=== PATIENT | female | born 1970 ===

== ENCOUNTER 2021-02-23 17:47 | Inpatient (IN) | payer OTHER, SELFPAY ==
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
[2021-02-23 20:47] VITALS: BP 108/75; PULSE 89; TEMP 36.6; O2SAT 96
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
[2021-02-24 11:28] VITALS: BP 113/73; PULSE 80; RESP 16; TEMP 37.5; O2SAT 98
[2021-02-24 20:16] VITALS: BP 117/80; PULSE 93; RESP 16; TEMP 36.9; O2SAT 97
[2021-02-24] MEDS: risperiDONE 1 MG TABLET PO (20:32)
[2021-02-25 07:40] LABS: Estimated Average Glucose 111 mg/dL; Hemoglobin A1c % 5.5 %
[2021-02-25 07:44] LABS: Cholesterol 173 mg/dL; HDL Cholesterol 63 mg/dL; LDL Cholesterol Calculated 95 mg/dl; Triglycerides 76 mg/dL
[2021-02-25 08:04] LABS: Thyroid Stimulating Hormone 3.51 uIU/mL (0.32-4.0)
[2021-02-25 08:45] LABS: Folate 13.2 ng/mL (> or = 4.0); Vitamin B12 464 pg/mL (200-900)
[2021-02-25] MEDS: risperiDONE 1 MG TABLET PO ×2 (09:50→22:48)
--- NOTE | 2021-02-25 10:02 | PC.NURSE ---
Pt reports that she gets her risperdal consta injection at [facility] at the [facility]. Pt reports she last had it 2 esdays ago. Message left on the nurse line at [phone] to verify.
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
[2021-02-25 10:31] VITALS: BP 117/72; PULSE 85; RESP 18; TEMP 36.8; O2SAT 97
[2021-02-25] MEDS: Levothyroxine Sodium 100 MCG TABLET PO (12:08)
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
[2021-02-25 22:42] VITALS: BP 113/74; PULSE 88; TEMP 36.8; O2SAT 95
[2021-02-26] MEDS: Levothyroxine Sodium 100 MCG TABLET PO (05:56)
[2021-02-26] MEDS: risperiDONE 1 MG TABLET PO (08:42)
[2021-02-26 08:45] VITALS: BP 124/87; PULSE 92; RESP 16; TEMP 36.9; O2SAT 98
--- NOTE | 2021-02-26 13:48 | P.PNPSI_ITS ---
Subjective Subjective Date of Service: 02/26/21 Reason For Visit: psychiatric emergency Interim History: pt reports her mood is so-so. excessive eye contact, reluctance to change medication. on MD's prompt, she does acknowledge believing the devil is coming after her. after repeated strong encouragement to increase her HS risperidone, she agrees. MD also informs her she will need a higher dose of the consta shot. per staff, isolative, paranoid. med-compliant. evasive. some ideation that the devil is coming after her. up at 0430 tiday. Mental Status Exam Mental Status Exam Narrative: Appearance: casually groomed, fair hygiene in NAD Behavior:cooperative, excessive eye contact psychomotor:no agitation or retardation noted Speech:soft spoken, clear, some delayed response rate, spontaneous Thought process:linear in brief and focused interview Thought content:paranoid delusions the devil is after her Mood: so-so Affect: constricted, worried SI:none expressed HI:none expressed VH/AH:none expressed Delusions:paranoid delusions Insight/judgment:poor x 2. Diagnostics Vital Signs (24Hr): Vital Signs - 24 hr 02/25/21 22:42 02/26/21 08:45 Temperature 98.2 F 98.4 F Pulse Rate 88 92 Respiratory Rate 16 Blood Pressure 113/74 124/87 Pulse Oximetry 95 98 Labs Labs: Laboratory Results - last 48 hr 02/25/21 02/25/21 02/25/21 07:09 07:09 07:09 Estimat Average Glucose 111 Hemoglobin A1c % 5.5 Triglycerides 76 Cholesterol 173 LDL Cholesterol, Calc 95 HDL Cholesterol 63 Vitamin B12 464 Folate 13.2 TSH 3.51 Medications Medications Current Medications Acetaminophen (Acetaminophen 325 Mg Tablet) 650 mg PO Q6H PRN PRN Reason: Headache/Pain Mild Scale (1-3) Al Hydroxide/Mg Hydroxide (Magnesium Hydrox/Alum Hydrox 30 Ml Oral.Susp) 30 ml PO Q6H PRN PRN Reason: Heartburn/Nausea Hydroxyzine HCl (Hydroxyzine Hcl 25 Mg Tablet) 25 mg PO BEDTIME PRN PRN Reason: Anxiety Levothyroxine Sodium (Levothyroxine Sodium 100 Mcg Tablet) 100 mcg PO DAILY@0600 [facility] Last Admin: 02/26/21 05:56 Dose: 100 mcg Documented by: Lorazepam (Lorazepam 1 Mg Tablet) 1 mg PO Q4H PRN PRN Reason: Anxiety Magnesium Hydroxide (Milk Of Magnesia 30 Ml Oral.Susp) 30 ml PO DAILY PRN PRN Reason: Constipation Risperidone (Risperidone 2 Mg Tablet) 2 mg PO Q4H PRN PRN Reason: agitation Risperidone (Risperidone 1 Mg Tablet) 1 mg PO DAILY [facility] Risperidone (Risperidone 2 Mg Tablet) 2 mg PO BEDTIME SHERI Trazodone HCl (Trazodone Hcl 50 Mg Tablet) 50 mg PO BEDTIME PRN PRN Reason: Insomnia Allergies Allergies Allergy/AdvReac Type Severity Reaction Status Date / Time aripiprazole [From [facility]] AdvReac Intermediate Agitated Verified 02/23/21 18:37 Assessment & Plan Assessment & Plan (1) Hypothyroidism: Status: Acute Code(s): E03.9 - Hypothyroidism, unspecified (2) Schizophrenia, paranoid type: Status: Acute Code(s): F20.0 - Paranoid schizophrenia Assessment and Plan: 50-year-old female with hypothyroidism, schizophrenia presently being treated for decompensation of schizophrenia. No acute medical issues at this point 1. For hypothyroidism continue levothyroxine 2. Schizophrenia-- scheduled risperidone in addition to the consta which she believes is due either sunday or sunday. PO risperidone dosing increased from 1 BID to 1/2 as of 02/26. will need a higher dose of consta next go-round. 3. Question of being diagnosed with brain tumor veracity not no ascertain, I suggest we get additional information from a primary care physician's office once office is open, had no clinical signs or symptoms to suggest a brain tumor. I spent minutes with the patient and/or on the patient floor today, greater than?50% of which was spent counseling/coordinating care. Reason for contiued inpatient stay Substantial Risk for: inability to function and rapid decompensation
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
[2021-02-26 18:00] VITALS: BP 125/82; PULSE 85; RESP 16; TEMP 36.7; O2SAT 97
[2021-02-26] MEDS: risperiDONE 2 MG TABLET PO (20:06)
[2021-02-27] MEDS: Levothyroxine Sodium 100 MCG TABLET PO (06:21)
[2021-02-27 08:00] VITALS: BP 120/79; PULSE 88; RESP 14; TEMP 37.1; O2SAT 97
[2021-02-27] MEDS: risperiDONE 1 MG TABLET PO (08:04)
--- NOTE | 2021-02-27 13:26 | HO.PSYCHPN ---
Subjective Subjective Date of Service: 02/27/21 Reason For Visit: psychiatric emergency Interim History: pt reports no substantial change from yesterday. agreeable to trial of cogentin for her restlessness, although she does not believe it is a side effect of risperidone. informs her that if the medication doesn't do anything then we will just stop it and no harm done. no other complaints or requests. per staff, pt has been hearing the TV in the common area from her room, which is all the way down the lyn (not possible and indicates AH). the TV is informing her it's time for her to be in court, it's time for her judgment. she is anxious, up at 0230 pacing. ate breakfast this morning. Mental Status Exam Mental Status Exam Narrative: Appearance: casually groomed, fair hygiene in NAD Behavior:cooperative, excessive eye contact psychomotor:no agitation or retardation noted Speech:soft spoken, clear, some delayed response rate, spontaneous Thought process:linear in brief and focused interview Thought content:paranoid delusions Mood: anxious Affect: constricted, worried SI:none expressed HI:none expressed VH/AH:+AH Delusions:paranoid delusions Insight/judgment:poor x 2. Diagnostics Vital Signs (24Hr): Vital Signs - 24 hr 02/26/21 18:00 02/27/21 08:00 Temperature 98.0 F 98.7 F Pulse Rate 85 88 Respiratory Rate 16 14 Blood Pressure 125/82 120/79 Pulse Oximetry 97 97 Medications Medications Current Medications Acetaminophen (Acetaminophen 325 Mg Tablet) 650 mg PO Q6H PRN PRN Reason: Headache/Pain Mild Scale (1-3) Al Hydroxide/Mg Hydroxide (Magnesium Hydrox/Alum Hydrox 30 Ml Oral.Susp) 30 ml PO Q6H PRN PRN Reason: Heartburn/Nausea Benztropine Mesylate (Benztropine Mesylate 0.5 Mg Tablet) 0.5 mg PO BID [facility] Hydroxyzine HCl (Hydroxyzine Hcl 25 Mg Tablet) 25 mg PO BEDTIME PRN PRN Reason: Anxiety Levothyroxine Sodium (Levothyroxine Sodium 100 Mcg Tablet) 100 mcg PO DAILY@0600 [facility] Last Admin: 02/27/21 06:21 Dose: 100 mcg Documented by: Lorazepam (Lorazepam 1 Mg Tablet) 1 mg PO Q4H PRN PRN Reason: Anxiety Magnesium Hydroxide (Milk Of Magnesia 30 Ml Oral.Susp) 30 ml PO DAILY PRN PRN Reason: Constipation Risperidone (Risperidone 2 Mg Tablet) 2 mg PO Q4H PRN PRN Reason: agitation Risperidone (Risperidone 1 Mg Tablet) 1 mg PO DAILY [facility] Last Admin: 02/27/21 08:04 Dose: 1 mg Documented by: Risperidone (Risperidone 2 Mg Tablet) 2 mg PO BEDTIME [facility] Last Admin: 02/26/21 20:06 Dose: 2 mg Documented by: Trazodone HCl (Trazodone Hcl 50 Mg Tablet) 50 mg PO BEDTIME PRN PRN Reason: Insomnia Allergies Allergies Allergy/AdvReac Type Severity Reaction Status Date / Time [facility] [[facility] AdvReac Intermediate Agitated Verified 02/23/21 18:37 Assessment & Plan Assessment & Plan (1) Hypothyroidism: Status: Acute Code(s): E03.9 - Hypothyroidism, unspecified (2) Schizophrenia, paranoid type: Status: Acute Code(s): F20.0 - Paranoid schizophrenia Assessment and Plan: 50-year-old female with hypothyroidism, schizophrenia presently being treated for decompensation of schizophrenia. No acute medical issues at this point 1. For hypothyroidism continue levothyroxine 2. Schizophrenia-- scheduled risperidone in addition to the consta which she believes is due either sunday or sunday. PO risperidone dosing increased from 1 BID to 1mg daily and 2 mg QHS as of 02/26. will need a higher dose of consta next go-round. 3. Question of being diagnosed with brain tumor veracity not no ascertain, I suggest we get additional information from a primary care physician's office once office is open, had no clinical signs or symptoms to suggest a brain tumor. I spent minutes with the patient and/or on the patient floor today, greater than?50% of which was spent counseling/coordinating care. Reason for contiued inpatient stay Substantial Risk for: inability to function and rapid decompensation
[2021-02-27] MEDS: Benztropine Mesylate 0.5 MG TABLET PO ×2 (13:29→22:11)
[2021-02-27 18:00] VITALS: BP 105/58; PULSE 94; RESP 16; TEMP 36.4; O2SAT 96
[2021-02-27] MEDS: risperiDONE 2 MG TABLET PO (22:11)
[2021-02-28] MEDS: Levothyroxine Sodium 100 MCG TABLET PO (08:58)
[2021-02-28] MEDS: Benztropine Mesylate 0.5 MG TABLET PO (10:01)
[2021-02-28] MEDS: risperiDONE 1 MG TABLET PO (10:01)
--- NOTE | 2021-02-28 13:26 | HO.PSYCHPN ---
Subjective Subjective Date of Service: 02/28/21 Reason For Visit: psychiatric emergency Interim History: pt found ambulating down the lyn, amenable to a chat. presentation does not appear to have changed, pt reports ongoing paranoid delusions. discussed her having gotten her consta 02/21 and thus her next scheduled dose being 12/6. states she is not feeling overly restless but there has been no change in the restlessness she is experiencing. agrees to increase cogentin to 1 BID and if no improvement on that dose will DC it. no other complaints or requests. per staff, slept 6-8 hours overnight. med-compliant. anx/dep 01/09. Mental Status Exam Mental Status Exam Narrative: Appearance: casually groomed, fair hygiene in NAD Behavior:cooperative, excessive eye contact psychomotor:no agitation or retardation noted Speech:soft spoken, clear, spontaneous Thought process:linear in brief and focused interview Thought content:paranoid delusions Mood: anxious Affect: full range SI:none expressed HI:none expressed VH/AH:+AH Delusions:paranoid delusions Insight/judgment:poor x 2. Diagnostics Vital Signs (24Hr): Vital Signs - 24 hr 02/27/21 18:00 Temperature 97.6 F Pulse Rate 94 Respiratory Rate 16 Blood Pressure 105/58 L Pulse Oximetry 96 Medications Medications Current Medications Acetaminophen (Acetaminophen 325 Mg Tablet) 650 mg PO Q6H PRN PRN Reason: Headache/Pain Mild Scale (1-3) Al Hydroxide/Mg Hydroxide (Magnesium Hydrox/Alum Hydrox 30 Ml Oral.Susp) 30 ml PO Q6H PRN PRN Reason: Heartburn/Nausea Benztropine Mesylate (Benztropine Mesylate 1 Mg Tablet) 1 mg PO BID [facility] Hydroxyzine HCl (Hydroxyzine Hcl 25 Mg Tablet) 25 mg PO BEDTIME PRN PRN Reason: Anxiety Levothyroxine Sodium (Levothyroxine Sodium 100 Mcg Tablet) 100 mcg PO DAILY@0600 [facility] Last Admin: 02/28/21 08:58 Dose: 100 mcg Documented by: Lorazepam (Lorazepam 1 Mg Tablet) 1 mg PO Q4H PRN PRN Reason: Anxiety Magnesium Hydroxide (Milk Of Magnesia 30 Ml Oral.Susp) 30 ml PO DAILY PRN PRN Reason: Constipation Risperidone (Risperidone 2 Mg Tablet) 2 mg PO Q4H PRN PRN Reason: agitation Risperidone (Risperidone 1 Mg Tablet) 1 mg PO DAILY [facility] Last Admin: 02/28/21 10:01 Dose: 1 mg Documented by: Risperidone (Risperidone 2 Mg Tablet) 2 mg PO BEDTIME [facility] Last Admin: 02/27/21 22:11 Dose: 2 mg Documented by: Trazodone HCl (Trazodone Hcl 50 Mg Tablet) 50 mg PO BEDTIME PRN PRN Reason: Insomnia Allergies Allergies Allergy/AdvReac Type Severity Reaction Status Date / Time aripiprazole [From [facility]] AdvReac Intermediate Agitated Verified 02/23/21 18:37 Assessment & Plan Assessment & Plan (1) Hypothyroidism: Status: Acute Code(s): E03.9 - Hypothyroidism, unspecified (2) Schizophrenia, paranoid type: Status: Acute Code(s): F20.0 - Paranoid schizophrenia Assessment and Plan: 50-year-old female with hypothyroidism, schizophrenia presently being treated for decompensation of schizophrenia. No acute medical issues at this point 1. For hypothyroidism continue levothyroxine 2. Schizophrenia-- scheduled risperidone in addition to the consta which she believes is due either sunday or sunday. PO risperidone dosing increased from 1 BID to 1mg daily and 2 mg QHS as of 02/26. will need a higher dose of consta next go-round. 3. Question of being diagnosed with brain tumor veracity not no ascertain, I suggest we get additional information from a primary care physician's office once office is open, had no clinical signs or symptoms to suggest a brain tumor. 4. ? akathisia - cogentin trial ongoing. I spent minutes with the patient and/or on the patient floor today, greater than?50% of which was spent counseling/coordinating care. Reason for contiued inpatient stay Substantial Risk for: inability to function and rapid decompensation
[2021-02-28 18:00] VITALS: BP 120/68; PULSE 96; RESP 17; TEMP 36.9; O2SAT 98
[2021-02-28] MEDS: risperiDONE 2 MG TABLET PO (21:14)
[2021-02-28] MEDS: Benztropine Mesylate 1 MG TABLET PO (21:14)
[2021-03-01] MEDS: Levothyroxine Sodium 100 MCG TABLET PO (06:47)
[2021-03-01 08:41] VITALS: PULSE 88; TEMP 36.1; O2SAT 97
[2021-03-01] MEDS: risperiDONE 1 MG TABLET PO (08:46)
[2021-03-01] MEDS: Benztropine Mesylate 1 MG TABLET PO (08:46)
--- NOTE | 2021-03-01 14:15 | HO.PSYCHPN ---
Subjective Subjective Date of Service: 03/01/21 Reason For Visit: psychiatric emergency Interim History: pt reports her anxiety is worse than previously and her depression is the same. she does not feel any change in her level of restlessness and agrees to DC the cogentin. she states, a lot of the accusations are about me. on being asked to explain, she elaborates, the TV seems to be talking about me. she denies that this could be a hallucination. she states the criticism is regarding mistakes she believes she made in her behavior toward her mother, such as maybe she should have kept the door open, but instead she shut it. she reluctantly agrees to increase her HS risperidone to 3 mg from 2 mg. per staff, briefly visible in the milieu. attended groups. quiet. withdrawn. med-compliant. slept 8 hours. Mental Status Exam Mental Status Exam Narrative: Appearance: casually groomed, fair hygiene in NAD Behavior:cooperative, excessive eye contact psychomotor:no agitation or retardation noted Speech:soft spoken, clear, spontaneous Thought process:linear in brief and focused interview Thought content:paranoid delusions Mood: anxious Affect: full range SI:none expressed HI:none expressed VH/AH:+AH Delusions:paranoid delusions Insight/judgment:poor x 2. Diagnostics Vital Signs (24Hr): Vital Signs - 24 hr 02/28/21 18:00 03/01/21 08:41 Temperature 98.5 F 97 F Pulse Rate 96 88 Respiratory Rate 17 Blood Pressure 120/68 Pulse Oximetry 98 97 Medications Medications Current Medications Acetaminophen (Acetaminophen 325 Mg Tablet) 650 mg PO Q6H PRN PRN Reason: Headache/Pain Mild Scale (1-3) Al Hydroxide/Mg Hydroxide (Magnesium Hydrox/Alum Hydrox 30 Ml Oral.Susp) 30 ml PO Q6H PRN PRN Reason: Heartburn/Nausea Hydroxyzine HCl (Hydroxyzine Hcl 25 Mg Tablet) 25 mg PO BEDTIME PRN PRN Reason: Anxiety Levothyroxine Sodium (Levothyroxine Sodium 100 Mcg Tablet) 100 mcg PO DAILY@0600 [facility] Last Admin: 03/01/21 06:47 Dose: 100 mcg Documented by: Magnesium Hydroxide (Milk Of Magnesia 30 Ml Oral.Susp) 30 ml PO DAILY PRN PRN Reason: Constipation Risperidone (Risperidone 2 Mg Tablet) 2 mg PO Q4H PRN PRN Reason: agitation Risperidone (Risperidone 1 Mg Tablet) 1 mg PO DAILY [facility] Last Admin: 03/01/21 08:46 Dose: 1 mg Documented by: Risperidone (Risperidone 3 Mg Tablet) 3 mg PO BEDTIME [facility] Trazodone HCl (Trazodone Hcl 50 Mg Tablet) 50 mg PO BEDTIME PRN PRN Reason: Insomnia Allergies Allergies Allergy/AdvReac Type Severity Reaction Status Date / Time [facility] AdvReac Intermediate Agitated Verified 02/23/21 18:37 Assessment & Plan Assessment & Plan (1) Hypothyroidism: Status: Acute Code(s): E03.9 - Hypothyroidism, unspecified (2) Schizophrenia, paranoid type: Status: Acute Code(s): F20.0 - Paranoid schizophrenia Assessment and Plan: 50-year-old female with hypothyroidism, schizophrenia presently being treated for decompensation of schizophrenia. No acute medical issues at this point 1. For hypothyroidism continue levothyroxine 2. Schizophrenia-- scheduled risperidone in addition to the consta which is due 03/07. PO risperidone dosing increased from 1 BID to 1mg daily and 2 mg QHS as of 02/26. will need a higher dose of consta next go-round. HS dosing increased from 2 mg to 3 mg as of 03/01. 3. Question of being diagnosed with brain tumor veracity not no ascertain, I suggest we get additional information from a primary care physician's office once office is open, had no clinical signs or symptoms to suggest a brain tumor. 4. ? akathisia - cogentin trial did not modify anxiety. it was stopped after a day at 1 BID. 5. dispo - pending inpt stabilization. I spent minutes with the patient and/or on the patient floor today, greater than?50% of which was spent counseling/coordinating care. Reason for contiued inpatient stay Substantial Risk for: inability to function and rapid decompensation
[2021-03-01 21:57] VITALS: BP 117/73; PULSE 77; TEMP 36.7; O2SAT 98
[2021-03-01] MEDS: risperiDONE 3 MG TABLET PO (22:01)
[2021-03-02] MEDS: Levothyroxine Sodium 100 MCG TABLET PO (06:54)
[2021-03-02 08:26] VITALS: BP 111/76; PULSE 97; RESP 16; TEMP 36.9; O2SAT 97
[2021-03-02] MEDS: risperiDONE 1 MG TABLET PO (08:35)
--- NOTE | 2021-03-02 14:50 | P.PNPSI_ITS ---
Subjective Subjective Date of Service: 03/02/21 Reason For Visit: psychiatric emergency Interim History: pt appears as per usual. states she slept longer on the higher dose of risperidone last night, denies any side effects. broaches that she was stable for a very long time and suddenly she is not. she states that she was under a lot of stress before she came in. 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 per staff, isolative, pleasant, suspicious of peers. eating well, attending groups. took HS meds but was resistant to taking them. Mental Status Exam Mental Status Exam Narrative: Appearance: casually groomed, fair hygiene in NAD Behavior:cooperative, excessive eye contact psychomotor:no agitation or retardation noted Speech:soft spoken, clear, spontaneous Thought process:linear in brief and focused interview Thought content:paranoid delusions Mood: anxious Affect: full range SI:none expressed HI:none expressed VH/AH:+AH Delusions:paranoid delusions Insight/judgment:poor x 2. Diagnostics Vital Signs (24Hr): Vital Signs - 24 hr 03/01/21 21:57 03/02/21 08:26 Temperature 98.0 F 98.5 F Pulse Rate 77 97 Respiratory Rate 16 Blood Pressure 117/73 111/76 Pulse Oximetry 98 97 Medications Medications Current Medications Acetaminophen (Acetaminophen 325 Mg Tablet) 650 mg PO Q6H PRN PRN Reason: Headache/Pain Mild Scale (1-3) Al Hydroxide/Mg Hydroxide (Magnesium Hydrox/Alum Hydrox 30 Ml Oral.Susp) 30 ml PO Q6H PRN PRN Reason: Heartburn/Nausea Hydroxyzine HCl (Hydroxyzine Hcl 25 Mg Tablet) 25 mg PO BEDTIME PRN PRN Reason: Anxiety Levothyroxine Sodium (Levothyroxine Sodium 100 Mcg Tablet) 100 mcg PO DAILY@0600 [facility] Last Admin: 03/02/21 06:54 Dose: 100 mcg Documented by: Magnesium Hydroxide (Milk Of Magnesia 30 Ml Oral.Susp) 30 ml PO DAILY PRN PRN Reason: Constipation Risperidone (Risperidone 2 Mg Tablet) 2 mg PO Q4H PRN PRN Reason: agitation Risperidone (Risperidone 1 Mg Tablet) 1 mg PO DAILY [facility] Last Admin: 03/02/21 08:35 Dose: 1 mg Documented by: Risperidone (Risperidone 3 Mg Tablet) 3 mg PO BEDTIME [facility] Last Admin: 03/01/21 22:01 Dose: 3 mg Documented by: Trazodone HCl (Trazodone Hcl 50 Mg Tablet) 50 mg PO BEDTIME PRN PRN Reason: Insomnia Allergies Allergies Allergy/AdvReac Type Severity Reaction Status Date / Time aripiprazole [From [facility]] AdvReac Intermediate Agitated Verified 02/23/21 18:37 Assessment & Plan Assessment & Plan (1) Hypothyroidism: Status: Acute Code(s): E03.9 - Hypothyroidism, unspecified (2) Schizophrenia, paranoid type: Status: Acute Code(s): F20.0 - Paranoid schizophrenia Assessment and Plan: 50-year-old female with hypothyroidism, schizophrenia presently being treated for decompensation of schizophrenia. No acute medical issues at this point 1. For hypothyroidism continue levothyroxine 2. Schizophrenia-- scheduled risperidone in addition to the consta which is due 03/07. PO risperidone dosing increased from 1 BID to 1mg daily and 2 mg QHS as of 02/26. will need a higher dose of consta next go-round. HS dosing increased from 2 mg to 3 mg as of 03/01. contact Dr. Hagan of [facility] for historical viewpoint. 3. Question of being diagnosed with brain tumor veracity not no ascertain, I suggest we get additional information from a primary care physician's office once office is open, had no clinical signs or symptoms to suggest a brain tumor. 4. ? akathisia - cogentin trial did not modify anxiety. it was stopped after a day at 1 BID. 5. dispo - pending inpt stabilization. I spent minutes with the patient and/or on the patient floor today, greater than?50% of which was spent counseling/coordinating care. Reason for contiued inpatient stay Substantial Risk for: inability to function and rapid decompensation
[2021-03-02] MEDS: risperiDONE 3 MG TABLET PO (21:57)
[2021-03-02 21:59] VITALS: BP 114/73; PULSE 90; TEMP 36.4; O2SAT 97
[2021-03-03] MEDS: Levothyroxine Sodium 100 MCG TABLET PO (06:29)
[2021-03-03] MEDS: risperiDONE 1 MG TABLET PO (08:48)
[2021-03-03 08:50] VITALS: BP 110/69; PULSE 85; RESP 17; TEMP 37.3; O2SAT 97
[2021-03-03 11:11] VITALS: BMI 24.0
--- NOTE | 2021-03-03 16:00 | P.PNPSI_ITS ---
Subjective Subjective Date of Service: 03/03/21 Reason For Visit: psychiatric emergency Interim History: pt appears as per usual.? denies any side effects or change from taking higher risperidone dose. no requests or complaints. per staff, pleasant and suspicious, especially re peers. pacing, concerned about son.? Mental Status Exam Mental Status Exam Narrative: Appearance: casually groomed, fair hygiene in NAD Behavior:cooperative, excessive eye contact psychomotor:no agitation or retardation noted Speech:soft spoken, clear, spontaneous Thought process:linear in brief and focused interview Thought content:paranoid delusions Mood: anxious Affect: full range SI:none expressed HI:none expressed VH/AH:+AH Delusions:paranoid delusions Insight/judgment:poor x 2. Diagnostics Vital Signs (24Hr): Vital Signs - 24 hr 03/02/21 21:59 03/03/21 08:50 Temperature 97.5 F 99.1 F Pulse Rate 90 85 Respiratory Rate 17 Blood Pressure 114/73 110/69 Pulse Oximetry 97 97 BMI result Body Mass Index 24.0 Medications Medications Current Medications Acetaminophen (Acetaminophen 325 Mg Tablet) 650 mg PO Q6H PRN PRN Reason: Headache/Pain Mild Scale (1-3) Al Hydroxide/Mg Hydroxide (Magnesium Hydrox/Alum Hydrox 30 Ml Oral.Susp) 30 ml PO Q6H PRN PRN Reason: Heartburn/Nausea Hydroxyzine HCl (Hydroxyzine Hcl 25 Mg Tablet) 25 mg PO BEDTIME PRN PRN Reason: Anxiety Levothyroxine Sodium (Levothyroxine Sodium 100 Mcg Tablet) 100 mcg PO DAILY@0600 [facility] Last Admin: 03/03/21 06:29 Dose: 100 mcg Documented by: Magnesium Hydroxide (Milk Of Magnesia 30 Ml Oral.Susp) 30 ml PO DAILY PRN PRN Reason: Constipation Risperidone (Risperidone 2 Mg Tablet) 2 mg PO Q4H PRN PRN Reason: agitation Risperidone (Risperidone 1 Mg Tablet) 1 mg PO DAILY [facility] Last Admin: 03/03/21 08:48 Dose: 1 mg Documented by: Risperidone (Risperidone 3 Mg Tablet) 3 mg PO BEDTIME [facility] Last Admin: 03/02/21 21:57 Dose: 3 mg Documented by: Trazodone HCl (Trazodone Hcl 50 Mg Tablet) 50 mg PO BEDTIME PRN PRN Reason: Insomnia Allergies Allergies Allergy/AdvReac Type Severity Reaction Status Date / Time aripiprazole [From [facility]] AdvReac Intermediate Agitated Verified 02/23/21 18:37 Assessment & Plan Assessment & Plan (1) Hypothyroidism: Status: Acute Code(s): E03.9 - Hypothyroidism, unspecified (2) Schizophrenia, paranoid type: Status: Acute Code(s): F20.0 - Paranoid schizophrenia Assessment and Plan: 50-year-old female with hypothyroidism, schizophrenia presently being treated for decompensation of schizophrenia. No acute medical issues at this point 1. For hypothyroidism continue levothyroxine 2. Schizophrenia-- scheduled risperidone in addition to the consta which is due 03/07. PO risperidone dosing increased from 1 BID to 1mg daily and 2 mg QHS as of 02/26. will need a higher dose of consta next go-round. HS dosing increased from 2 mg to 3 mg as of 03/01. contact Dr. Hagan of [facility] for historical viewpoint. 3. Question of being diagnosed with brain tumor veracity not no ascertain, I suggest we get additional information from a primary care physician's office once office is open, had no clinical signs or symptoms to suggest a brain tumor. 4. ? akathisia - cogentin trial did not modify anxiety. it was stopped after a day at 1 BID. 5. dispo - pending inpt stabilization. I spent minutes with the patient and/or on the patient floor today, greater than?50% of which was spent counseling/coordinating care. Reason for contiued inpatient stay Substantial Risk for: inability to function and rapid decompensation
[2021-03-03 19:35] VITALS: BP 101/69; PULSE 96; TEMP 36.7; O2SAT 96
[2021-03-03] MEDS: risperiDONE 3 MG TABLET PO (20:52)
[2021-03-04] MEDS: Levothyroxine Sodium 100 MCG TABLET PO (06:55)
[2021-03-04 08:55] VITALS: BP 108/68; PULSE 85; RESP 18; TEMP 36.4; O2SAT 98
[2021-03-04] MEDS: risperiDONE 1 MG TABLET PO (08:57)
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
[2021-03-04 21:24] VITALS: BP 119/72; PULSE 91; TEMP 36.6; O2SAT 96
[2021-03-04] MEDS: risperiDONE 3 MG TABLET PO (21:27)
[2021-03-05] MEDS: Levothyroxine Sodium 100 MCG TABLET PO (07:04)
[2021-03-05] MEDS: risperiDONE 1 MG TABLET PO (09:04)
--- NOTE | 2021-03-05 15:06 | HO.PSYCHPN ---
Subjective Subjective Date of Service: 03/05/21 Reason For Visit: paranoid and anxious Subjective Notes: Conditional Voluntary Medical Problems Affecting Mental Status: No Interim History: as per staff has been anxious and isolative slightly guarded. With chief writer reports that she is managing. Initially guarded. Then reported that she was admitted here because the devil was chasing her around for mistakes that she has made. Did not want to elaborate on same. Feels that people on the unit talk about her and do not like her and reluctant to elaborate. He sleep okay. Endorse feeling anxious. Denied SI. Regarding family, feels that her son might be supportive, but sure Medication Compliance: Yes Side effects from medications: No Attending Groups: No Review of Systems Acute medical concerns: No Review of Systems Review of Systems unremarkable Mental Status Exam Mental Status Exam Narrative: seen in room. Appropriately dressed. Self-care did appear slightly limited. Guarded. Some poor eye contact. Anxious. Paranoid. No SI. No HI. Insight and judgment fair Diagnostics Vital Signs (24Hr): Vital Signs - 24 hr 03/04/21 21:24 Temperature 97.8 F Pulse Rate 91 Blood Pressure 119/72 Pulse Oximetry 96 BMI result Body Mass Index 24.0 Medications Medications Current Medications Acetaminophen (Acetaminophen 325 Mg Tablet) 650 mg PO Q6H PRN PRN Reason: Headache/Pain Mild Scale (1-3) Al Hydroxide/Mg Hydroxide (Magnesium Hydrox/Alum Hydrox 30 Ml Oral.Susp) 30 ml PO Q6H PRN PRN Reason: Heartburn/Nausea Hydroxyzine HCl (Hydroxyzine Hcl 25 Mg Tablet) 25 mg PO BEDTIME PRN PRN Reason: Anxiety Levothyroxine Sodium (Levothyroxine Sodium 100 Mcg Tablet) 100 mcg PO DAILY@0600 [facility] Last Admin: 03/05/21 07:04 Dose: 100 mcg Documented by: Magnesium Hydroxide (Milk Of Magnesia 30 Ml Oral.Susp) 30 ml PO DAILY PRN PRN Reason: Constipation Risperidone (Risperidone 2 Mg Tablet) 2 mg PO Q4H PRN PRN Reason: agitation Risperidone (Risperidone 1 Mg Tablet) 1 mg PO DAILY [facility] Last Admin: 03/05/21 09:04 Dose: 1 mg Documented by: Risperidone (Risperidone 3 Mg Tablet) 3 mg PO BEDTIME [facility] Last Admin: 03/04/21 21:27 Dose: 3 mg Documented by: Trazodone HCl (Trazodone Hcl 50 Mg Tablet) 50 mg PO BEDTIME PRN PRN Reason: Insomnia Allergies Allergies Allergy/AdvReac Type Severity Reaction Status Date / Time aripiprazole [From [facility]] AdvReac Intermediate Agitated Verified 02/23/21 18:37 Assessment & Plan Assessment & Plan (1) Hypothyroidism: Status: Acute Code(s): E03.9 - Hypothyroidism, unspecified (2) Schizophrenia, paranoid type: Status: Acute Code(s): F20.0 - Paranoid schizophrenia Assessment and Plan: 50-year-old female with hypothyroidism, schizophrenia presently being treated for decompensation of schizophrenia. No acute medical issues at this point 1. For hypothyroidism continue levothyroxine 2. Schizophrenia-- scheduled risperidone in addition to the consta which is due 03/07. PO risperidone dosing increased from 1 BID to 1mg daily and 2 mg QHS as of 02/26. will need a higher dose of consta next go-round. HS dosing increased from 2 mg to 3 mg as of 03/01. contact Dr. Hagan of [facility] for historical viewpoint. 3. Question of being diagnosed with brain tumor veracity not no ascertain, I suggest we get additional information from a primary care physician's office once office is open, had no clinical signs or symptoms to suggest a brain tumor. 5. dispo - pending inpt stabilization. 03/05/2021: No changes to primary team treatment plan and aware of Risperdal regimen I spent minutes with the patient and/or on the patient floor today, greater than?50% of which was spent counseling/coordinating care. Reason for contiued inpatient stay Substantial Risk for: inability to function
[2021-03-05 18:00] VITALS: BP 125/81; PULSE 122; RESP 18; TEMP 36.8; O2SAT 97
[2021-03-05] MEDS: risperiDONE 3 MG TABLET PO (20:29)
[2021-03-06] MEDS: Levothyroxine Sodium 100 MCG TABLET PO (05:27)
[2021-03-06] MEDS: risperiDONE 1 MG TABLET PO (09:03)
[2021-03-06 09:34] VITALS: BP 110/74; PULSE 98; RESP 14; TEMP 36.6
--- NOTE | 2021-03-06 14:34 | HO.PSYCHPN ---
Subjective Subjective Date of Service: 03/06/21 Reason For Visit: paranoid and anxious Subjective Notes: Conditional Voluntary Medical Problems Affecting Mental Status: No Interim History: Still anxious and guarded. Denies there being evil chasing her. Internally preoccupied. Did not want to elaborate on same, when attempted to explore this. Still feels that people on the unit talk about her and do not like her and reluctant to elaborate. Sleep okay. Endorse feeling anxious. Denied SI. No medication concerns Medication Compliance: Yes Side effects from medications: No Attending Groups: No Review of Systems Acute medical concerns: No Review of Systems Review of Systems unremarkable Mental Status Exam Mental Status Exam Narrative: seen in room. Appropriately dressed. Self-care slightly limited. Guarded. Poor eye contact. Anxious. Paranoid. No SI. No HI. Insight and judgment fair Diagnostics Vital Signs (24Hr): Vital Signs - 24 hr 03/05/21 18:00 03/06/21 09:34 Temperature 98.2 F 98 F Pulse Rate 122 H 98 Respiratory Rate 18 14 Blood Pressure 125/81 110/74 Pulse Oximetry 97 BMI result Body Mass Index 24.0 Medications Medications Current Medications Acetaminophen (Acetaminophen 325 Mg Tablet) 650 mg PO Q6H PRN PRN Reason: Headache/Pain Mild Scale (1-3) Al Hydroxide/Mg Hydroxide (Magnesium Hydrox/Alum Hydrox 30 Ml Oral.Susp) 30 ml PO Q6H PRN PRN Reason: Heartburn/Nausea Hydroxyzine HCl (Hydroxyzine Hcl 25 Mg Tablet) 25 mg PO BEDTIME PRN PRN Reason: Anxiety Levothyroxine Sodium (Levothyroxine Sodium 100 Mcg Tablet) 100 mcg PO DAILY@0600 [facility] Last Admin: 03/06/21 05:27 Dose: 100 mcg Documented by: Magnesium Hydroxide (Milk Of Magnesia 30 Ml Oral.Susp) 30 ml PO DAILY PRN PRN Reason: Constipation Risperidone (Risperidone 2 Mg Tablet) 2 mg PO Q4H PRN PRN Reason: agitation Risperidone (Risperidone 1 Mg Tablet) 1 mg PO DAILY [facility] Last Admin: 03/06/21 09:03 Dose: 1 mg Documented by: Risperidone (Risperidone 3 Mg Tablet) 3 mg PO BEDTIME [facility] Last Admin: 03/05/21 20:29 Dose: 3 mg Documented by: Trazodone HCl (Trazodone Hcl 50 Mg Tablet) 50 mg PO BEDTIME PRN PRN Reason: Insomnia Allergies Allergies Allergy/AdvReac Type Severity Reaction Status Date / Time aripiprazole [From Abilify] AdvReac Intermediate Agitated Verified 02/23/21 18:37 Assessment & Plan Assessment & Plan (1) Hypothyroidism: Status: Acute Code(s): E03.9 - Hypothyroidism, unspecified (2) Schizophrenia, paranoid type: Status: Acute Code(s): F20.0 - Paranoid schizophrenia Assessment and Plan: 50-year-old female with hypothyroidism, schizophrenia presently being treated for decompensation of schizophrenia. No acute medical issues at this point 1. For hypothyroidism continue levothyroxine 2. Schizophrenia-- scheduled risperidone in addition to the consta which is due 03/07. PO risperidone dosing increased from 1 BID to 1mg daily and 2 mg QHS as of 02/26. will need a higher dose of consta next go-round. HS dosing increased from 2 mg to 3 mg as of 03/01. [facility] 3. Question of being diagnosed with brain tumor veracity not no ascertain, I suggest we get additional information from a primary care physician's office once office is open, had no clinical signs or symptoms to suggest a brain tumor. 5. dispo - pending inpt stabilization. 03/06/2021: No changes to primary team treatment plan I spent minutes with the patient and/or on the patient floor today, greater than?50% of which was spent counseling/coordinating care. Reason for contiued inpatient stay Substantial Risk for: inability to function
[2021-03-06 18:00] VITALS: BP 109/73; PULSE 94; TEMP 36.6
[2021-03-06] MEDS: risperiDONE 3 MG TABLET PO (20:27)
[2021-03-07] MEDS: Levothyroxine Sodium 100 MCG TABLET PO (06:39)
[2021-03-07] MEDS: risperiDONE 1 MG TABLET PO (09:28)
[2021-03-07 10:00] VITALS: BP 105/72; PULSE 90
--- NOTE | 2021-03-07 14:05 | HO.PSYCHPN ---
Subjective Subjective Date of Service: 03/07/21 Reason For Visit: paranoid and anxious Interim History: pt presents similarly to last . reports she feels a little nervous, remains concerned that she has sinned and will be judged and condemned for it. states she sometimes hears AH, but she cannot recall exactly when or what they might say. she believes the most recent time she heard anything concerning was yesterday. she is amenable to MD contacting Dr. Hagan and to receiving a higher dose of the consta shot. asking about when she will be DCed. ambivalent. per staff, a little depressed and highly anxious. isolative to her room. c/o AH which are sometimes bad. slept through the night. Mental Status Exam Mental Status Exam Narrative: Appearance: casually groomed, fair hygiene in NAD Behavior:cooperative, good eye contact psychomotor: fidgety Speech:soft spoken, clear, spontaneous Thought process:linear in brief and focused interview Thought content:paranoid delusions Mood: anxious Affect: constricted SI:none expressed HI:none expressed VH/AH:+AH Delusions:paranoid delusions Insight/judgment:poor x 2. Diagnostics Vital Signs (24Hr): Vital Signs - 24 hr 03/06/21 18:00 Temperature 98 F Pulse Rate 94 Blood Pressure 109/73 BMI result Body Mass Index 24.0 Medications Medications Current Medications Acetaminophen (Acetaminophen 325 Mg Tablet) 650 mg PO Q6H PRN PRN Reason: Headache/Pain Mild Scale (1-3) Al Hydroxide/Mg Hydroxide (Magnesium Hydrox/Alum Hydrox 30 Ml Oral.Susp) 30 ml PO Q6H PRN PRN Reason: Heartburn/Nausea Hydroxyzine HCl (Hydroxyzine Hcl 25 Mg Tablet) 25 mg PO BEDTIME PRN PRN Reason: Anxiety Levothyroxine Sodium (Levothyroxine Sodium 100 Mcg Tablet) 100 mcg PO DAILY@0600 [facility] Last Admin: 03/07/21 06:39 Dose: 100 mcg Documented by: Magnesium Hydroxide (Milk Of Magnesia 30 Ml Oral.Susp) 30 ml PO DAILY PRN PRN Reason: Constipation Risperidone (Risperidone 2 Mg Tablet) 2 mg PO Q4H PRN PRN Reason: agitation Risperidone (Risperidone 1 Mg Tablet) 1 mg PO DAILY [facility] Last Admin: 03/07/21 09:28 Dose: 1 mg Documented by: Risperidone (Risperidone 3 Mg Tablet) 3 mg PO BEDTIME [facility] Last Admin: 03/06/21 20:27 Dose: 3 mg Documented by: Trazodone HCl (Trazodone Hcl 50 Mg Tablet) 50 mg PO BEDTIME PRN PRN Reason: Insomnia Allergies Allergies Allergy/AdvReac Type Severity Reaction Status Date / Time aripiprazole [From Abilify] AdvReac Intermediate Agitated Verified 02/23/21 18:37 Assessment & Plan Assessment & Plan (1) Hypothyroidism: Status: Acute Code(s): E03.9 - Hypothyroidism, unspecified (2) Schizophrenia, paranoid type: Status: Acute Code(s): F20.0 - Paranoid schizophrenia Assessment and Plan: 50-year-old female with hypothyroidism, schizophrenia presently being treated for decompensation of schizophrenia. No acute medical issues at this point 1. For hypothyroidism continue levothyroxine 2. Schizophrenia-- scheduled risperidone in addition to the consta which is due 03/07. PO risperidone dosing increased from 1 BID to 1mg daily and 2 mg QHS as of 02/26. will need a higher dose of consta next go-round. HS dosing increased from 2 mg to 3 mg as of 03/01. contact Dr. Hagan of [facility] for historical viewpoint. 3. Question of being diagnosed with brain tumor veracity not no ascertain, I suggest we get additional information from a primary care physician's office once office is open, had no clinical signs or symptoms to suggest a brain tumor. 5. dispo - pending inpt stabilization. I spent minutes with the patient and/or on the patient floor today, greater than?50% of which was spent counseling/coordinating care. Reason for contiued inpatient stay Substantial Risk for: inability to function and rapid decompensation
[2021-03-07 21:45] VITALS: BP 105/71; PULSE 94; TEMP 36.7; O2SAT 95
[2021-03-07] MEDS: risperiDONE 3 MG TABLET PO (21:46)
[2021-03-08] MEDS: Levothyroxine Sodium 100 MCG TABLET PO (06:47)
[2021-03-08 08:36] VITALS: BP 113/68; PULSE 90; RESP 18; TEMP 36.8; O2SAT 98
[2021-03-08] MEDS: risperiDONE 1 MG TABLET PO (08:37)
--- NOTE | 2021-03-08 15:14 | P.PNPSI_ITS ---
Subjective Subjective Date of Service: 03/08/21 Reason For Visit: paranoid and anxious Interim History: pt presents similarly to yesterday.? reports she feels anxious, remains concerned that she made mistakes in the raising of her daughter.? states she sometimes hears AH, but she cannot recall exactly when the last time was.? she supposes it was yesterday. no requests or complaints. per staff, 9/ anxiety and no depression. c/o AH yesterday, declined to elaborate. declined 1:1 mtg NOC shift. worried about her daughter. paranoid and fidgety. Mental Status Exam Mental Status Exam Narrative: Appearance: casually groomed, fair hygiene in NAD Behavior:cooperative, good eye contact psychomotor: fidgety Speech:soft spoken, clear, spontaneous Thought process:linear in brief and focused interview Thought content: no delusions or paranoia explicitly expressed Mood: anxious Affect: constricted SI:none expressed HI:none expressed VH/AH:+AH yesterday Diagnostics Vital Signs (24Hr): Vital Signs - 24 hr 03/07/21 21:45 03/08/21 08:36 Temperature 98.0 F 98.3 F Pulse Rate 94 90 Respiratory Rate 18 Blood Pressure 105/71 113/68 Pulse Oximetry 95 98 BMI result Body Mass Index 24.0 Medications Medications Current Medications Acetaminophen (Acetaminophen 325 Mg Tablet) 650 mg PO Q6H PRN PRN Reason: Headache/Pain Mild Scale (1-3) Al Hydroxide/Mg Hydroxide (Magnesium Hydrox/Alum Hydrox 30 Ml Oral.Susp) 30 ml PO Q6H PRN PRN Reason: Heartburn/Nausea Hydroxyzine HCl (Hydroxyzine Hcl 25 Mg Tablet) 25 mg PO BEDTIME PRN PRN Reason: Anxiety Levothyroxine Sodium (Levothyroxine Sodium 100 Mcg Tablet) 100 mcg PO DAILY@0600 [facility] Last Admin: 03/08/21 06:47 Dose: 100 mcg Documented by: Magnesium Hydroxide (Milk Of Magnesia 30 Ml Oral.Susp) 30 ml PO DAILY PRN PRN Reason: Constipation Risperidone (Risperidone 2 Mg Tablet) 2 mg PO Q4H PRN PRN Reason: agitation Risperidone (Risperidone 1 Mg Tablet) 1 mg PO DAILY [facility] Last Admin: 03/08/21 08:37 Dose: 1 mg Documented by: Risperidone (Risperidone 3 Mg Tablet) 3 mg PO BEDTIME [facility] Last Admin: 03/07/21 21:46 Dose: 3 mg Documented by: Trazodone HCl (Trazodone Hcl 50 Mg Tablet) 50 mg PO BEDTIME PRN PRN Reason: Insomnia Allergies Allergies Allergy/AdvReac Type Severity Reaction Status Date / Time aripiprazole [From Abilify] AdvReac Intermediate Agitated Verified 02/23/21 18:37 Assessment & Plan Assessment & Plan (1) Hypothyroidism: Status: Acute Code(s): E03.9 - Hypothyroidism, unspecified (2) Schizophrenia, paranoid type: Status: Acute Code(s): F20.0 - Paranoid schizophrenia Assessment and Plan: 50-year-old female with hypothyroidism, schizophrenia presently being treated for decompensation of schizophrenia. No acute medical issues at this point 1. For hypothyroidism continue levothyroxine 2. Schizophrenia-- scheduled risperidone in addition to the consta which is due 03/07. PO risperidone dosing increased from 1 BID to 1mg daily and 2 mg QHS as of 02/26. will need a higher dose of consta next go-round. HS dosing increased from 2 mg to 3 mg as of 03/01. message left for Dr. Hagan of [facility] for historical viewpoint. consta 37.5 mg ordered to be delivered from [facility] tomorrow. 3. Question of being diagnosed with brain tumor veracity not no ascertain, I suggest we get additional information from a primary care physician's office once office is open, had no clinical signs or symptoms to suggest a brain tumor. 5. dispo - pending inpt stabilization. I spent minutes with the patient and/or on the patient floor today, greater than?50% of which was spent counseling/coordinating care. Reason for contiued inpatient stay Substantial Risk for: inability to function and rapid decompensation
[2021-03-08 20:26] VITALS: BP 123/78; PULSE 116; RESP 16; TEMP 36.3; O2SAT 96
[2021-03-08] MEDS: risperiDONE 3 MG TABLET PO (20:34)
[2021-03-09] MEDS: Levothyroxine Sodium 100 MCG TABLET PO (06:07)
[2021-03-09 08:15] VITALS: BP 111/74; PULSE 112; RESP 16; TEMP 36.6; O2SAT 98
[2021-03-09] MEDS: risperiDONE 1 MG TABLET PO (08:49)
--- NOTE | 2021-03-09 16:31 | HO.PSYCHPN ---
Subjective Subjective Date of Service: 03/09/21 Reason For Visit: paranoid and anxious Interim History: pt reports feeling more relaxed due to plans to discharge this week. reports mood as so-so, denies any AH since sunday. no safety concerns. would like to discharge tomorrow. received consta 37.5 mg today. n oother complaints or requests. per staff, attending groups. dep 11/09, anx 12/10. no SI/HI/AVH. does appear to be RIS at times, however. Mental Status Exam Mental Status Exam Narrative: Appearance: casually groomed, fair hygiene in NAD Behavior:cooperative, good eye contact psychomotor: no PMA/PMR Speech:soft spoken, clear, spontaneous Thought process:linear in brief and focused interview Thought content: no delusions or paranoia explicitly expressed Mood: so-so Affect: flexible, appropriate SI:none HI:none VH/AH:+AH sunday Diagnostics Vital Signs (24Hr): Vital Signs - 24 hr 03/08/21 20:26 03/09/21 08:15 Temperature 97.4 F 97.8 F Pulse Rate 116 H 112 H Respiratory Rate 16 16 Blood Pressure 123/78 111/74 Pulse Oximetry 96 98 BMI result Body Mass Index 24.0 Medications Medications Current Medications Acetaminophen (Acetaminophen 325 Mg Tablet) 650 mg PO Q6H PRN PRN Reason: Headache/Pain Mild Scale (1-3) Al Hydroxide/Mg Hydroxide (Magnesium Hydrox/Alum Hydrox 30 Ml Oral.Susp) 30 ml PO Q6H PRN PRN Reason: Heartburn/Nausea Hydroxyzine HCl (Hydroxyzine Hcl 25 Mg Tablet) 25 mg PO BEDTIME PRN PRN Reason: Anxiety Levothyroxine Sodium (Levothyroxine Sodium 100 Mcg Tablet) 100 mcg PO DAILY@0600 [facility] Last Admin: 03/09/21 06:07 Dose: 100 mcg Documented by: Magnesium Hydroxide (Milk Of Magnesia 30 Ml Oral.Susp) 30 ml PO DAILY PRN PRN Reason: Constipation Risperidone (Risperidone 2 Mg Tablet) 2 mg PO Q4H PRN PRN Reason: agitation Risperidone (Risperidone 1 Mg Tablet) 1 mg PO DAILY [facility] Last Admin: 03/09/21 08:49 Dose: 1 mg Documented by: Risperidone (Risperidone 3 Mg Tablet) 3 mg PO BEDTIME [facility] Last Admin: 03/08/21 20:34 Dose: 3 mg Documented by: Trazodone HCl (Trazodone Hcl 50 Mg Tablet) 50 mg PO BEDTIME PRN PRN Reason: Insomnia Allergies Allergies Allergy/AdvReac Type Severity Reaction Status Date / Time aripiprazole [From Abilify] AdvReac Intermediate Agitated Verified 02/23/21 18:37 Assessment & Plan Assessment & Plan (1) Hypothyroidism: Status: Acute Code(s): E03.9 - Hypothyroidism, unspecified (2) Schizophrenia, paranoid type: Status: Acute Code(s): F20.0 - Paranoid schizophrenia Assessment and Plan: 50-year-old female with hypothyroidism, schizophrenia presently being treated for decompensation of schizophrenia. No acute medical issues at this point 1. For hypothyroidism continue levothyroxine 2. Schizophrenia-- scheduled risperidone in addition to the consta which is due 03/07. PO risperidone dosing increased from 1 BID to 1mg daily and 2 mg QHS as of 02/26. will need a higher dose of consta next go-round. HS dosing increased from 2 mg to 3 mg as of 03/01. message left for Dr. Hagan of [facility] for historical viewpoint. consta 37.5 mg given 03/09. 3. Question of being diagnosed with brain tumor veracity not no ascertain, I suggest we get additional information from a primary care physician's office once office is open, had no clinical signs or symptoms to suggest a brain tumor. 5. dispo - discharge tomorrow at 1000 per pt request. I spent minutes with the patient and/or on the patient floor today, greater than?50% of which was spent counseling/coordinating care. Reason for contiued inpatient stay Substantial Risk for: inability to function and rapid decompensation
[2021-03-09 19:32] VITALS: BP 101/69; PULSE 102; RESP 16; TEMP 36.6; O2SAT 96
[2021-03-09] MEDS: risperiDONE 3 MG TABLET PO (20:02)
[2021-03-10] MEDS: Levothyroxine Sodium 100 MCG TABLET PO (06:13)
[2021-03-10 07:45] VITALS: BP 121/75; PULSE 104; RESP 14; TEMP 36.7; O2SAT 98
[2021-03-10] MEDS: risperiDONE 1 MG TABLET PO (08:26)
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
--- NOTE | 2021-03-10 09:56 | PC.NURSE ---
Addendum entered by Haydee Knapp RN 03/10/21 10:11: Following teaching she verbalizes understanding of all discharge medications and appointments. Original Note: Joselyn is alert, fully oriented, pleasant and cooperative with discharge process. Joselyn reports sleep, appetite and anxiety are improved. She denies perceptual disturbance of any kind. She denies ideation, plan or intent to harm herself or others. She denies physical complaint.
== END 2021-03-10 10:25 | disposition home or self-care (01) | DRG 750 ==
PROVIDERS: Social Worker; Admitting Provider Psychiatry & Neurology Psychiatry; PCP Nurse Practitioner Family; Visit Provider Psychiatry & Neurology Psychiatry
DX: F20.0 Paranoid schizophrenia (principal); E03.9 Hypothyroidism, unspecified; Z79.890 Hormone replacement therapy; Z79.899 Other long term (current) drug therapy
CPT/HCPCS: 36415; 80061; 82607; 82746; 83036; 84443